=== PATIENT | female | born 1995 | race Caucasian/White ===

== ENCOUNTER 2017-07-26 18:23 | Emergency (ER) | payer OTHER ==
[~2017-07-26] VITALS: Ht 160 cm; Wt 69.4 kg
--- NOTE | 2017-07-26 19:03 | ED.ADGEN ---
Adult General Chief Complaint Chief Complaint " I was taking a shower... and slipped... I am abot 7 month ...it is my first.. but I still got a headache. and neck pain from where I hit my head. ..>" HPI HPI Patient is a 22 year old female who presents with above hx and complaints of head contusion after fall in shower. Pt. denies other injury. Pt. denies loss of consciousness. Pt. has small contusion to posterior scalp. Pt. - active, FHR 150 , pt report no injury or pain in abdomen. Review of Systems Review of Systems Constitutional: Denies fever or chills [] Eyes: Denies change in visual acuity, redness, or eye pain [] HENT: Denies nasal congestion or sore throat [] Respiratory: Denies cough or shortness of breath [] Cardiovascular: No additional information not addressed in HPI [] GI: Denies abdominal pain, nausea, vomiting, bloody stools or diarrhea [] : Denies dysuria or hematuria [] Musculoskeletal: Denies back pain or joint pain [] Integument: Denies rash or skin lesions [] Neurologic: Denies headache, focal weakness or sensory changes [] Endocrine: Denies polyuria or polydipsia [] All other systems were reviewed and found to be within normal limits, except as documented in this note. Family History Family History Non-contributory Current Medications Current Medications Current Medications Medications (Trade) Dose Ordered Sig/Maggy Start Time Stop Time Status Last Admin Dose Admin Acetaminophen (Tylenol) 1,000 mg 1X ONCE 07/26/17 19:30 07/26/17 19:31 DC 07/26/17 19:18 1,000 MG Allergies Allergies Allergies Coded Allergies Type Severity Reaction Last Updated Verified No Known Drug Allergies 07/26/17 No Physical Exam Physical Exam Constitutional: Well developed, well nourished, no acute distress, non-toxic appearance. [] HENT: Normocephalic, small.posterior scalp contusion. , bilateral external ears normal, oropharynx moist, no oral exudates, nose normal. [] Eyes: PERRLA, EOMI, conjunctiva normal, no discharge. [] Neck: Normal range of motion, mild tenderness nucal line, supple, no stridor. [ ] Cardiovascular:Heart rate regular rhythm, no murmur [] Lungs & Thorax: Bilateral breath sounds clear to auscultation [] Abdomen: Bowel sounds normal, soft, no tenderness, no masses, no pulsatile masses. [ Gravid. FHR 150's, movement Skin: Warm, dry, no erythema, no rash. [] Back: No tenderness, no CVA tenderness. [] Extremities: No tenderness, no cyanosis, no clubbing, ROM intact, no edema. [] Neurologic: Alert and oriented X 3, normal motor function, normal sensory function, no focal deficits noted. [] Psychologic: Affect normal, judgement normal, mood normal. [] Current Patient Data Vital Signs Vital Signs Date Time Temp Pulse Resp B/P (MAP) Pulse Ox O2 Delivery O2 Flow Rate FiO2 07/26/17 18:59 98.5 105 16 98 Room Air EKG EKG [] Radiology/Procedures Radiology/Procedures CT shows on acute findings of neck or head, No shift, mass, bleed, edema or fx. [] Course & Med Decision Making Course & Med Decision Making Pertinent Labs and Imaging studies reviewed. (See chart for details) Ice packs. Rest. Tylenol for pain. Return if any concerns. [] Final Impression Final Impression 1. Head Cervical Injury- Contusion[] Problems: Dragon Disclaimer Dragon Disclaimer This electronic medical record was generated, in whole or in part, using a voice recognition dictation system. ORI TELLEZ MD Jul 26, 2017 19:03
[2017-07-26] MEDS ORDERED: ACETAMINOPHEN 500 MG TABLET PO ONE (19:30)
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
[2017-07-26 20:15] VITALS: BP 121/60
== END 2017-07-26 20:30 | disposition home or self-care (01) ==
LOC: ER 18:23
DX: O9A.212 Injury, poisoning and certain other consequences of external causes complicating pregnancy, second trimester (principal); S00.03XA Contusion of scalp, initial encounter; S10.83XA Contusion of other specified part of neck, initial encounter; Z3A.28 28 weeks gestation of pregnancy; W01.0XXA Fall on same level from slipping, tripping and stumbling without subsequent striking against object, initial encounter; Y93.E1 Activity, personal bathing and showering; Y99.8 Other external cause status; Y92.89 Other specified places as the place of occurrence of the external cause
CPT/HCPCS: 70450; 72125; 99284-25

== ENCOUNTER 2017-08-03 20:02 | Emergency (ER) | payer OTHER ==
[~2017-08-03] VITALS: Ht 160 cm; Wt 69.4 kg
[2017-08-03 20:10] VITALS: BP 111/64
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
== END 2017-08-03 22:11 | disposition home or self-care (01) ==
LOC: ER 20:02
DX: O9A.213 Injury, poisoning and certain other consequences of external causes complicating pregnancy, third trimester (principal); S09.21XA Traumatic rupture of right ear drum, initial encounter; Z3A.28 28 weeks gestation of pregnancy; X58.XXXA Exposure to other specified factors, initial encounter; Y93.89 Activity, other specified; Y99.8 Other external cause status; Y92.89 Other specified places as the place of occurrence of the external cause
CPT/HCPCS: 99281

== ENCOUNTER 2017-11-08 15:54 | Emergency (ER) | payer OTHER ==
[~2017-11-08] VITALS: Ht 160 cm; Wt 62.6 kg
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
[2017-11-08] MEDS ORDERED: IBUPROFEN 600 MG TABLET. PO ONE (17:15)
[2017-11-08] MEDS ORDERED: IBUP400T18 PO (17:27)
[2017-11-08 17:42] VITALS: BP 126/85
== END 2017-11-08 17:45 | disposition home or self-care (01) ==
LOC: ER 15:54 → EEVIPCON 15:54 → ER 17:45
DX: S00.83XA Contusion of other part of head, initial encounter (principal); S80.12XA Contusion of left lower leg, initial encounter; S80.11XA Contusion of right lower leg, initial encounter; S60.222A Contusion of left hand, initial encounter; S60.221A Contusion of right hand, initial encounter; Y04.0XXA Assault by unarmed brawl or fight, initial encounter; Y93.89 Activity, other specified; Y99.8 Other external cause status; Y92.89 Other specified places as the place of occurrence of the external cause
CPT/HCPCS: 70450; 70486; 99284-25